=== PATIENT | female | born 1950 | race Caucasian/White ===

== ENCOUNTER 2016-12-20 19:25 | Observation (INO) | payer MEDICARE, OTHER ==
[~2016-12-20] VITALS: Ht 149.9 cm; Wt 63.5 kg
[2016-12-20 22:50] LABS: HEMOGLOBIN 13.4 gm/dl (12.3-15.3); RED BLOOD COUNT 4.56 M/UL (4.00-5.10); WHITE BLOOD COUNT 6.2 K/UL (4.5-11.0)
[2016-12-20 23:10] LABS: BUN/CREATININE RATIO 33 (0-10)
[2016-12-21 05:23] LABS: HEMOGLOBIN 12.7 gm/dl (12.3-15.3); RED BLOOD COUNT 4.34 M/UL (4.00-5.10); WHITE BLOOD COUNT 4.7 K/UL (4.5-11.0)
[2016-12-21 05:45] LABS: BUN/CREATININE RATIO 28 (0-10)
[2016-12-21] MEDS ORDERED: NORVASC 5 MG TAB5 MG PO (09:00)
[2016-12-21] MEDS ORDERED: PRAVASTATIN SOD40 MG PO (09:00)
[2016-12-21] MEDS ORDERED: VITAMIN D250000 UNIT PO (09:00)
[2016-12-21] MEDS ORDERED: METFORMIN HCL500 M2 PO (09:02)
[2016-12-22 04:12] LABS: HEMOGLOBIN 11.9 gm/dl (12.3-15.3); RED BLOOD COUNT 4.09 M/UL (4.00-5.10); WHITE BLOOD COUNT 4.2 K/UL (4.5-11.0)
[2016-12-22 04:34] LABS: BUN/CREATININE RATIO 22 (0-10)
== END 2016-12-22 10:51 | disposition home or self-care (01) ==
LOC: ER1 19:25 → ZEROF 12-21 01:50 → MED SURG 4 12-21 01:50
PROVIDERS: Emergency Medicine; ADMIT Internal Medicine
DX: J18.9 Pneumonia, unspecified organism (principal); R55 Syncope and collapse; R06.02 Shortness of breath; R05 Cough; R50.9 Fever, unspecified; E11.9 Type 2 diabetes mellitus without complications; I10 Essential (primary) hypertension; E78.5 Hyperlipidemia, unspecified; Z83.3 Family history of diabetes mellitus; Z82.49 Family history of ischemic heart disease and other diseases of the circulatory system; Z79.82 Long term (current) use of aspirin; Z79.84 Long term (current) use of oral hypoglycemic drugs; Z79.899 Other long term (current) drug therapy; Z90.49 Acquired absence of other specified parts of digestive tract; Z90.710 Acquired absence of both cervix and uterus
CPT/HCPCS: 36415; 36600; 71020; 80048; 80053; 81001; 82803; 82962; 83605; 84484; 85025; 87040; 87081; 87880; 94640; 94664; 96365; 96376; 99284; G0378; J1956; J7030

== ENCOUNTER 2021-02-25 14:05 | Emergency (ER) | payer MEDICARE, OTHER ==
[~2021-02-25 14:05] MED LIST: METFORMIN HCL500 M2 PO; NORVASC 5 MG TAB5 MG PO; PRAVASTATIN SOD40 MG PO; VITAMIN D250000 UNIT PO
[2021-02-25 14:56] LABS: HEMOGLOBIN 13.7 gm/dl (12.3-15.3); RED BLOOD COUNT 4.65 M/UL (4.00-5.10); WHITE BLOOD COUNT 9.6 K/UL (4.5-11.0)
[2021-02-25 15:36] LABS: BUN/CREATININE RATIO 30 (0-10)
== END 2021-02-26 00:55 | disposition short-term general hospital (02) ==
LOC: ER1 14:05
PROVIDERS: Physician Assistant
DX: I63.511 Cerebral infarction due to unspecified occlusion or stenosis of right middle cerebral artery (principal); E11.9 Type 2 diabetes mellitus without complications; I10 Essential (primary) hypertension; Z90.710 Acquired absence of both cervix and uterus; Z90.89 Acquired absence of other organs; Z20.822 Contact with and (suspected) exposure to COVID-19
CPT/HCPCS: 36600; 70450; 70496; 70498; 71045; 80053; 80307; 81001; 82550; 82553; 82800; 82962; 83605; 83874; 84484; 85025; 87040; 87086; 99285; J7030; Q9967; U0002

== ENCOUNTER 2022-01-28 14:34 | Emergency (ER) | payer MEDICARE ==
[2022-01-28 15:31] LABS: HEMOGLOBIN 10.8 gm/dl (12.3-15.3); RED BLOOD COUNT 3.95 M/UL (4.00-5.10); WHITE BLOOD COUNT 9.9 K/UL (4.5-11.0)
[2022-01-28 16:08] LABS: BUN/CREATININE RATIO 33 (0-10)
[2022-01-28] MEDS ORDERED: PREDNISONE20 MG PO (22:23)
[2022-01-28] MEDS ORDERED: BACTRIM DS TAB1 EACH PO (22:23)
== END 2022-01-28 22:50 | disposition home or self-care (01) ==
LOC: ER1 14:34
PROVIDERS: Student in an Organized Health Care Education/Training Program
DX: N39.0 Urinary tract infection, site not specified (principal); E86.0 Dehydration; E87.6 Hypokalemia; T36.1X5A Adverse effect of cephalosporins and other beta-lactam antibiotics, initial encounter; E11.9 Type 2 diabetes mellitus without complications; I10 Essential (primary) hypertension; Z86.73 Personal history of transient ischemic attack (TIA), and cerebral infarction without residual deficits; G40.909 Epilepsy, unspecified, not intractable, without status epilepticus; Z79.02 Long term (current) use of antithrombotics/antiplatelets; Z79.899 Other long term (current) drug therapy
CPT/HCPCS: 70450; 71045; 80053; 81001; 82550; 82553; 83605; 84439; 84443; 84484; 85025; 96365; 96375; 99285; J0696; J1200; J2930; Q9967